=== PATIENT | female | born 1970 | race Caucasian/White ===

== ENCOUNTER → 2019-12-29 17:49 | Outpatient (CLI) | payer BC, SELFPAY ==
--- NOTE | ~2019-12-29 | MM_ITS ---
EXAMINATION: MM screening alina BI w stephenie HISTORY: Screening mammogram TECHNIQUE: Craniocaudal and mediolateral oblique 3-D tomosynthesis images were obtained and synthetic 2-D images were generated. CAD analysis was submitted and interpreted. COMPARISON: 10/05/2016 diagnostic left digital mammogram and complete left breast ultrasound 09/28/2016, 09/14/2015 bilateral digital screening mammogram examinations BREAST PARENCHYMAL COMPOSITION: The breasts are heterogeneously dense, which may obscure small masses . FINDINGS: Approximately 10.5 cm deep to the nipple in the central posterior right breast there is an approximately 4 mm mass with radiating spicules (craniocaudal Tomosynthesis image 41/86, MLO Tomosynt hesis image 48/112). Diagnostic right mammogram and right breast ultrasound examination are recommend ed. Otherwise there is no evidence of suspicious mass, calcification, or architectural distortion to sugg est malignancy in either breast. There has been no other suspicious interval change. IMPRESSION: 1. Spiculated density in posterior central right breast 2. Diagnostic right mammogram and right breast ultrasound examination are recommended. BI-RADS Category 0: Incomplete: Needs additional imaging evaluation. Reviewed, dictated and finalized at location A. ROPOMETRIST IMPRESSION: 1. Spiculated density in posterior central right breast 2. Diagnostic right mammogram and right breast ultrasound examination are recom mended. BI-RADS Category 0: Incomplete: Needs additional imaging evaluation.
== END ==
PROVIDERS: PCP Family Medicine Adolescent Medicine; Visit Provider Family Medicine Adolescent Medicine
DX: Z12.31 Encounter for screening mammogram for malignant neoplasm of breast (principal); R92.8 Other abnormal and inconclusive findings on diagnostic imaging of breast
CPT/HCPCS: 77063; 77067

== ENCOUNTER → 2020-01-15 07:29 | Outpatient (CLI) | payer BC, SELFPAY ==
--- NOTE | ~2020-01-15 | MMUS_ITS ---
MM diagnostic mammo unilat RT, US breast RT complete 01/15/2020 07:48 (accession [id number]), 01/15/2020 08:30 (accession [id number]) Indication: Follow-up right breast mass Procedure: Digital diagnostic images of the right breast/s] were performed using full field digital m ammography. 3-D tomosynthesis were also obtained and synthetic 2-D images were generated. CAD analysi s was performed and interpreted. Comparison: 12/29/2019 Findings: The breasts are heterogenously dense, which may obscure small masses. There is a small spic ulated mass upper central aspect of the right breast posteriorly. There are no suspicious calcificati ons. No focal skin thickening. Right breast ultrasound: Normal heterogeneous echotexture. No definitive mass is identified in the area of mammographic concer n. Impression: 1: Small spiculated mass upper central aspect of the right breast. Given that no abnormality is ident ified by ultrasound, follow-up evaluation with wire localization biopsy is recommended. BI-RADS category 5: Highly suspicious abnormality. Reviewed, dictated and finalized at location A. Impression: 1: Small spiculated mass upper central aspect of the right breast. Given that n o abnormality is identified by ultrasound, follow-up evaluation with wire local ization biopsy is recommended. BI-RADS category 5: Highly suspicious abnormality. Impression: 1: Small spiculated mass upper central aspect of the right breast. Given that n o abnormality is identified by ultrasound, follow-up evaluation with wire local ization biopsy is recommended. BI-RADS category 5: Highly suspicious abnormality.
== END ==
PROVIDERS: PCP Family Medicine Adolescent Medicine; Visit Provider Physician Assistant
DX: R92.8 Other abnormal and inconclusive findings on diagnostic imaging of breast (principal)
CPT/HCPCS: 76641; 77065

== ENCOUNTER 2020-03-15 06:45 | Outpatient (CLI) | payer BC, SELFPAY | END 2020-03-15 06:46 | disposition home or self-care (01) | PROVIDERS: PCP Family Medicine Adolescent Medicine; Visit Provider Surgery | DX: Z01.818 Encounter for other preprocedural examination (principal); Z11.59 Encounter for screening for other viral diseases | CPT/HCPCS: 87635; C9803; U0003 ==

== ENCOUNTER 2020-03-15 09:38 | Outpatient (CLI) | payer BC, SELFPAY ==
[2020-03-15 10:17] LABS: Blood Urea Nitrogen 7 mg/dL (7-17); Calcium 8.7 mg/dL (8.4-10.2); Carbon Dioxide 27 mmol/L (22-30); Chloride 103 mmol/L (98-107); Estimated Glomerular Filt Rate > 60; Glucose 157 mg/dL (65-105); Potassium 4.2 mmol/L (3.4-5.0); Sodium 136 mmol/L (137-145)
--- NOTE | 2020-03-15 10:17 | ECG_ITS ---
Measurements Intervals [place] Rate: 87 P: 20 AR: 134 QRS: 57 QRSD: 79 T: 97 QT: 345 QTc: 416 Interpretive Statements SINUS RHYTHM VENTRICULAR PREMATURE COMPLEXES LOW QRS VOLTAGE- DIFFUSE LEADS ANTEROSEPTAL INFARCT, AGE INDETERMINATE BORDERLINE ST-T WAVE ABNORMALITY- LATERAL LEADS ABNORMAL ECG Electronically Signed On 03-15-2020 10:39:30 CDT by Corby Navarrete D.O.
== END 2020-03-15 09:39 | disposition home or self-care (01) ==
LOC: ANHLAB 09:40
PROVIDERS: PCP Family Medicine Adolescent Medicine; Visit Provider Anesthesiology
DX: Z01.818 Encounter for other preprocedural examination (principal); E11.9 Type 2 diabetes mellitus without complications; R94.31 Abnormal electrocardiogram [ECG] [EKG]
CPT/HCPCS: 36415; 80048; 93005

== ENCOUNTER 2020-03-17 00:27 | Day surgery (SDC) | payer BC, SELFPAY ==
[2020-03-11 16:25] VITALS: BMI 50.2
[2020-03-17] VITALS (9 sets, daily range): BP systolic 131–154; BP diastolic 50–73; PULSE 82–94; RESP 14–20; TEMP 36.3–36.6; O2SAT 93–99
--- NOTE | ~2020-03-17 | MM_ITS ---
MM needle loc RT DATE: 03/17/2020 08:53 INDICATION: Preoperative wire localization of previously reported small spiculated mass (focal arch itectural distortion) in upper central right breast TECHNIQUE: The purpose of the procedure, technique and limitations were discussed with the patient. T he patient verbalized understanding and gave consent. Timeout procedure confirmed proper patient, procedure and breast. The right breast was placed in compression in craniocaudal position with biopsy grid over the upper b reast. In order to confidently identify the area, repeat craniocaudal compression view was performed and then the biopsy grid was re-applied. The skin was prepared with sterile Betadine solution. 1% lid ocaine local anesthetic was administered to the skin. A 10 cm or Mammalok needle was introduced from a superior approach into the breast. Craniocaudal expo sures confirmed appropriate direction of the needle. Using ML views, the needle was adjusted to appro priate depth. The wire was then engaged to the tip of the needle. Final ML and CC exposures confirmed the wire in the area of interest. The patient tolerated the proce dure very well, without complaint or apparent complication. COMPARISON: 01/15/2020 diagnostic right digital mammogram IMPRESSION: Preoperative wire localization of area of architectural distortion in the posterior aspec t of the upper central right breast Reviewed, dictated and finalized at Location A. Reviewed, dictated and finalized at location A. IMPRESSION: Preoperative wire localization of area of architectural distortion in the posterior aspect of the upper central right breast
--- NOTE | ~2020-03-17 | MM_ITS ---
MM surgical specimen RT DATE: 03/17/2020 10:52 INDICATION: Surgical breast specimen TECHNIQUE: Single noncompression digital mammographic exposure of surgical soft tissue specimen COMPARISON: 01/15/2020 diagnostic right digital mammogram 03/17/2020 right mammographic localization FINDINGS: The guidewire and area of mammographic interest are present within the specimen tissue. IMPRESSION: Successful surgical excision of localized area of architectural distortion Reviewed, dictated and finalized at Location [facility]. Reviewed, dictated and finalized at location A. IMPRESSION: Successful surgical excision of localized area of architectural dis tortion
--- NOTE | ~2020-03-17 | NM_ITS ---
NM sentinel node inject only DATE: 03/17/2020 09:23 INDICATION: Preoperative injection for sentinel node localization at surgery TECHNIQUE: The purpose of the procedure, technique and potential locations were discussed with the ray mcnulty. The patient verbalized understanding and gave consent. Timeout procedure confirmed proper patient, breast and procedure. Four equally divided doses totaling cumulative 1.088 mCi 99M technetium Lymphoseek was injected subcu taneously at 12:00, 3:00, 6:00 and 9:00 positions in the periareolar area of the right breast. IMPRESSION: Preoperative 1.088 mCi 99M technetium Lymphoseek periareolar subcutaneous injections for intraoperative sentinel node localization Reviewed, dictated and finalized at Location [facility]. Reviewed, dictated and finalized at location A. IMPRESSION: Preoperative 1.088 mCi 99M technetium Lymphoseek periareolar subcut aneous injections for intraoperative sentinel node localization
[2020-03-17 07:03] LABS: Glucose Point of Care 112 (65-105)
[2020-03-17] MEDS: LACTATED RINGERS 1,000 ML 30 ML IV CONT ×2 (07:10→11:26)
--- NOTE | 2020-03-17 07:10 | WPDANESEPPF ---
Anes - Initial Pre Proc Eval Procedure: Operation Date: 03/17/20 09:30 Proposed Procedures p Right Axillary [place] Lymph Node Biopsy - Cholo Patel MD s Right Breast Ultrasound And/Or Mammogram Guided Needle Localization Right Breast Lumpectomy - Cholo Patel MD Date/Time: 03/17/20 07:10 Surgeon: Cholo Patel MD Pre Op Diagnosis: Abnormal Right Breast Mammogram Patient Data Age: 49 Gender: F Height: 5 ft 9.5 in Weight: 156.5 kg Allergies Allergy/AdvReac Type Severity Reaction Status Date / Time No Known Allergies Allergy Verified 03/17/20 06:45 Home Medications Medication Instructions Recorded Confirmed Type aspirin 81 mg tablet,delayed 81 mg PO DAILY 01/29/20 03/11/20 History release buspirone 10 mg tablet 10 mg PO BID 01/29/20 03/17/20 History carvedilol 6.25 mg tablet 6.25 mg PO Q12H 01/29/20 03/17/20 History cetirizine 10 mg tablet 10 mg PO DAILY 01/29/20 03/11/20 History clopidogrel 75 mg tablet 75 mg PO DAILY 01/29/20 03/11/20 History dapagliflozin 10 mg tablet 10 mg PO DAILY 01/29/20 03/11/20 History duloxetine 60 mg capsule,delayed 60 mg PO DAILY 01/29/20 03/17/20 History release fluticasone propionate 50 1 spray NASAL DAILY 01/29/20 03/11/20 History mcg/actuation nasal spray,suspension losartan 50 mg tablet 50 mg PO DAILY 01/29/20 03/11/20 History montelukast 10 mg tablet 10 mg PO DAILY 01/29/20 03/11/20 History norgestimate-ethinyl estradiol 1 tablet PO DAILY 01/29/20 03/11/20 History rosuvastatin 40 mg tablet 40 mg PO DAILY 01/29/20 03/11/20 History topiramate 50 mg tablet 50 mg PO BID 01/29/20 03/17/20 History duloxetine 30 mg PO DAILY 03/11/20 03/17/20 History Laboratory Tests 03/17/20 07:01 POC Capillary Glucose 112 mg/dl H mg/dl (65-105) Patient hx anesthesia problems: none Family hx anesthesia problems: none PMFSH Past Medical History Medical History Anxiety Diabetes Heart attack Hyperlipemia Hypertension Surgical History Surgical History History of laparoscopic cholecystectomy Family History Family History Mother Hypertension Family history of elevated blood lipids Family history of malignant neoplasm of breast in first degree relative Other Diabetes mellitus Family history of cardiovascular disease Social History Social History Smoking status: Never smoker Alcohol intake: current 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 Questions were solicited and answers provided to the satisfaction of the patient/family/POA.
--- NOTE | 2020-03-17 07:36 | SUR.PREOP ---
To mammography per w/c.
--- NOTE | 2020-03-17 08:46 | PM.SD ---
Same Day Admit/Disch: HPI History of Present Illness Chief complaint: Abnormal Right Breast Mammogram Narrative: Nickie Cartagena is a 49 year old female who presented with a 4 mm spiculated right breast lesion on mammography in the upper right breast. The lesion is not seen on ultrasound and does not have any microcalcifications. It is highly suspicious for malignancy and the patient has a strong family history for breast cancer. She is taken to surgery now for right breast lumpectomy and right axillary sentinel lymph node biopsy. She will have wire localization prior to her surgery. [facility], [facility] Past Medical History Medical History Anxiety Diabetes Heart attack Hyperlipemia Hypertension Surgical History Surgical History History of laparoscopic cholecystectomy Family History Family History Mother Hypertension Family history of elevated blood lipids Family history of malignant neoplasm of breast in first degree relative Other Diabetes mellitus Family history of cardiovascular disease Social History Social History Smoking status: Never smoker Alcohol intake: current Additional occupation/education comments: [employer] Same Day Admit/Disch: Med Pre-admit Medications Home Medications Medication Instructions Recorded Confirmed Type aspirin 81 mg tablet,delayed 81 mg PO DAILY 01/29/20 03/17/20 History release buspirone 10 mg tablet 10 mg PO BID 01/29/20 03/17/20 History carvedilol 6.25 mg tablet 6.25 mg PO Q12H 01/29/20 03/17/20 History cetirizine 10 mg tablet 10 mg PO DAILY 01/29/20 03/17/20 History clopidogrel 75 mg tablet 75 mg PO DAILY 01/29/20 03/11/20 History dapagliflozin 10 mg tablet 10 mg PO DAILY 01/29/20 03/17/20 History duloxetine 60 mg capsule,delayed 60 mg PO DAILY 01/29/20 03/17/20 History release fluticasone propionate 50 1 spray NASAL DAILY 01/29/20 03/17/20 History mcg/actuation nasal spray,suspension losartan 50 mg tablet 50 mg PO DAILY 01/29/20 03/17/20 History montelukast 10 mg tablet 10 mg PO DAILY 01/29/20 03/17/20 History norgestimate-ethinyl estradiol 1 tablet PO DAILY 01/29/20 03/17/20 History rosuvastatin 40 mg tablet 40 mg PO DAILY 01/29/20 03/17/20 History topiramate 50 mg tablet 50 mg PO BID 01/29/20 03/17/20 History duloxetine 30 mg PO DAILY 03/11/20 03/17/20 History hydrocodone-acetaminophen 1 - 2 tablet PO Q6H PRN #15 tablet 03/17/20 Rx Exam Const: General: cooperative, comfortable, no acute distress, alert and awake Nutritional Appearance: obese morbidly obese Orientation/consciousness: patient oriented x3 Limitations: no limitations HENMT: Head: normocephalic and atraumatic Mouth: Yes Normal oral and palatal mucosa present Eyes: Conjunctivae: conjunctivae normal Pupils: Equal, round and reactive pupils present EOM: EOMs intact bilaterally Neck: Neck: normal visual inspection, no lymphadenopathy and nontender Chest: Breast/axilla inspection: normal inspection of the breasts and normal inspection of the axillae Breast/axilla palpation: normal palpation of the breasts and normal palpation of the axillae Resp: Effort & Inspection: normal respiratory effort Auscultation: clear to auscultation bilaterally Cardio: Rate: regular rate Rhythm: regular rhythm Heart sounds: no gallops, no murmurs and no rubs GI: Inspection: non-distended GI Palp: Yes Soft to palpation, No Tenderness to palpation present (GI), No Hepatomegaly present and No Splenomegaly present Skin: Lesions: no lesions Rashes: no rashes Neuro: General: no focal motor deficits and CN's II-XI intact bilaterally Cranial nerves: Yes Equal, round and reactive pupils present, Yes Bilaterally intact EOM present, Yes facial symmetry and Yes Midline tongue present
[2020-03-17] MEDS: ceFAZolin 3 GM/D5W 100 ML 100 ML IVPB (09:22)
[2020-03-17] MEDS: BUPIVACAINE/EPINEPHRINE 0.5% 30 ML VIAL INFILTRATE (10:00)
[2020-03-17] MEDS: ISOSULFAN BLUE 1% INJ 5 ML VIAL SUB-Q (10:01)
--- NOTE | 2020-03-17 11:31 | PM.PROC ---
Procedure Note - Detailed Date of procedure: 03/17/20 Pre-op diagnosis: Abnormal Right Breast Mammogram Abnormal mammogram right breast Post-op diagnosis: same Procedure performed: Wire localization, right breast lumpectomy, right axillary sentinel lymph node biopsy Description of procedure: Patient was taken to x-ray preoperatively. Wire localization of the upper right breast lesion was performed preoperatively. Also radioisotope injection under the right nipple was performed. She was taken back to the preoperative area. I reviewed her films. She was then taken to the operating room and induced into general anesthesia. The right breast as well as the right axilla was prepped and draped. The right arm was also prepped and draped so that it was sterile and mobile in the operating field. I injected Isosulfan Blue dye under the right nipple. Gentle breast massage was carried out for about 2 minutes. The navigator was used and areas of high isotope emission in the right axilla that would be compatible with location of sentinel nodes was marked on the skin. A hairline axillary incision was also marked on the skin. Incision was made and dissection was carried down through the subcutaneous tissue. Once we dissected into the axillary fat, the navigator was again used and an area of high isotope emission identified. Careful dissection with the cautery as well as blunt dissection was carried out. Clips were used for lymphatic stasis and vascular stasis. We eventually came to a dye stained lymph node in the axilla. It had a very high isotope emission and also had some lymphatics that were dye stained leading to this node. The node was carefully dissected and removed. Adjacent to this dye stained node, was a 2nd right axillary node which was excised with the sentinel node. After being removed, the dye stained node was dissected free from the additional right axillary node. The dye stained node was again checked with the navigator and did have very high isotope emission. The node was stained blue as well. It was sent to pathology labeled right axillary sentinel lymph node 1. The other node was not dye stained and did not have high isotope emission. It was sent simply as an additional right axillary node. Then using palpation, exploration, and the navigator, I searched for additional right axillary sentinel nodes. No suitable candidates were noted. Wound was then made hemostatic. It was closed in layers with 3 0 Monocryl subcutaneous and subcuticular interrupted suture. This area was quarantined with towels and we turned our attention to the right breast. The proposed incision, which was in the upper outer quadrant of the right breast was drawn on the skin. Local anesthetic was infiltrated into the skin and the deeper breast tissues. Incision was made and dissection was carried down through about 5 cm of breast tissue. I then exposed the wire and pulled the wire through the skin and out the wound. From there, dissection was carried down to and around the area where the lesion was judged to reside. Trying to stay well away from the lesion itself, I dissected around it attempting to take a margin of normal breast tissue in all dimensions. Eventually I dissected around the tumor and freed the end of the wire so that the specimen could be removed. The breast specimen was kept in its orientation and I used different color suture to corry the various margins for the pathologist. These were labeled appropriately. The specimen with the wire was placed on a grid and sent to mammography. Mammogram of the specimen did confirm the lesion to be present. I then exposed all 6 of the wound edges and excised additional margins for each. Each of these margin re-excision specimens was labeled appropriately and had a suture placed on its inner aspect. These were each sent to the pathologist. The wound was then made meticulously hemostatic with the cautery. The wound was closed in la
--- NOTE | 2020-03-17 12:43 | SUR.PHASEII ---
3030 pt called mom and we both gave her an update, she is heading to the hospital to pick her up
[2020-03-17 17:49] LABS: Glucose Point of Care 68 (65-105)
== END 2020-03-17 14:06 | disposition home or self-care (01) ==
PROVIDERS: PCP Family Medicine Adolescent Medicine; Visit Provider Surgery
PROC: (CPT 19301; principal; 2020-03-17 09:30)
PROC: (CPT 19301; 2020-03-17 09:30)
DX: C50.911 Malignant neoplasm of unspecified site of right female breast (principal); E11.9 Type 2 diabetes mellitus without complications; I10 Essential (primary) hypertension; I25.2 Old myocardial infarction; F41.9 Anxiety disorder, unspecified; Z79.02 Long term (current) use of antithrombotics/antiplatelets; Z79.4 Long term (current) use of insulin; E66.01 Morbid (severe) obesity due to excess calories; Z68.42 Body mass index [BMI] 45.0-49.9, adult
CPT/HCPCS: 19301; 38525; 19281; 38792; 76098; 88305; 88307; 88342; A9270; A9520; C1713; C1769; J0690; J2250; J2405; J2704; J3010; J7030; J7120

== ENCOUNTER 2020-05-18 13:17 | Inpatient (IN) | payer BC, SELFPAY ==
[2020-05-18 13:43] LABS: Glucose Point of Care 500 (65-105)
[2020-05-18 13:56] VITALS: BP 100/86; PULSE 92; RESP 20; TEMP 36.8; O2SAT 98
[2020-05-18 14:04] LABS: Basophils Absolute Auto 0.1 K/mm3 (0.0-0.1); Basophils Percent Auto 0.4 % (0.2-1.2); Hematocrit 46.2 % (37.0-47.0); Hemoglobin 14.7 g/dL (12.0-15.0); Immature Granulocyte Absolute 0.07 K/mm3 (0.00-0.031); Immature Granulocyte Percent A 0.5 % (0-0.5); Lymphocytes Absolute Auto 0.85 K/mm3 (0.9-3.2); Lymphocytes Percent Auto 6.2 % (18.3-44.2); Mean Corpuscular HGB Conc 31.8 g/dl (32-36); Mean Corpuscular Hemoglobin 30.2 pg (26-34); Mean Corpuscular Volume 95.1 fl (80-100); Mean Platelet Volume 10.5 fl (7.4-10.4); Monocytes Absolute Auto 0.8 K/mm3 (0.1-0.6); Monocytes Percent Auto 5.5 % (2.6-8.5); Neutrophils Percent Auto 87.4 % (45.5-73.1); Platelet Count Result 391 k/mm3 (150-375); Red Blood Count 4.86 M/mm3 (4.2-5.4); Red Cell Distribution Width 12.4 % (11.5-14.5); White Blood Count 13.7 K/mm3 (4.5-10.0)
[2020-05-18 14:13] LABS: Add Urine Microscopic? YES; Appearance Urine Cloudy (Clear); Bacteria Urine Trace /hpf; Bilirubin Urine Negative (Negative); Blood Urine 3+ (Negative); Glucose Urine UA 3+ mg/dL (Negative); Ketones Urine 2+ mg/dL (Negative); Leukocyte Esterase Ur Negative LEU/UL (Negative); Mucus Urine Rare /lpf; Nitrate Urine Negative (Negative); Protein Urine 2+ mg/dL (Negative); RBC Urine >75 /hpf (0-2); Specific Grav Ur 1.015 (1.001-1.035); Squamous Epithelial Cell Urine Many /hpf (Few); Urobilinogen Urine Negative mg/dL (<2.0); WBC Urine 21-30 /hpf
[2020-05-18 14:16] LABS: Color Urine Dark Yellow (Yellow)
[2020-05-18 14:18] LABS: Alanine Aminotransferase 47 U/L (4-35); Albumin Level 4.6 g/dL (3.5-5.1); Alkaline Phosphatase 191 U/L (38-126); Aspartate Amino Transferase 54 U/L (14-36); Bilirubin,Total 0.4 mg/dL (0.2-1.3); Blood Urea Nitrogen 21 mg/dL (7-17); Calcium 9.3 mg/dL (8.4-10.2); Carbon Dioxide 7 mmol/L (22-30); Chloride 97 mmol/L (98-107); Estimated CRCL calculation 71 ml/min; Estimated Glomerular Filt Rate 40; Glucose 479 mg/dL (65-105); Magnesium 2.3 mg/dL (1.6-2.3); Phosphorus 9.3 mg/dL (2.5-4.5); Potassium 5.1 mmol/L (3.4-5.0); Sodium 133 mmol/L (137-145)
[2020-05-18 15:00] VITALS: PULSE 101; RESP 20; O2SAT 100
[2020-05-18 15:01] LABS: Alveolar/Arterial O2 Gradient 21.9 mmHg; Base Excess ABG -20.9 mEq/l (+/-2.0); Fractional Inspired Oxygen 21 %; Oxygen Content ABG 20.3 %vol (16.0-22.0); Oxygen Saturation ABG 96.4 % (95.0-100.0); Oxyhemoglobin 96.5 % THb (90.0-100.0); PO2 ABG 106.4 mmHg (80.0-100.0); PO2 FiO2 Ratio Arterial Blood 5.07 %; Total Hemoglobin 14.9 g/dL (12.0-18.0)
--- NOTE | 2020-05-18 15:01 | ECG_ITS ---
Measurements Intervals [place] Rate: 101 P: 19 [place]: 140 QRS: 6 QRSD: 84 T: -16 QT: 348 QTc: 451 Interpretive Statements SINUS TACHYCARDIA POSSIBLE LEFT ATRIAL ENLARGEMENT ANTEROSEPTAL INFARCT, AGE INDETERMINATE BORDERLINE ST-T WAVE ABNORMALITY- INFERIOR LEADS BASELINE ARTIFACT- V3-V6 ABNORMAL ECG Electronically Signed On 05-18-2020 15:37:29 CDT by Corby Navarrete D.O.
[2020-05-18 15:04] LABS: Device ROOM AIR; Modified Allen's Test Pass; PCO2 ABG 17.9 mmHg (35.0-45.0); Site Drawn RIGHT RADIAL
[2020-05-18 15:08] LABS: Beta-Hydroxybutyrate/Acetoacetate 9.74 mmol/L (0.02-0.27)
[2020-05-18] MEDS: SODIUM CHLORIDE 0.9% IV 1,000 ML 999 ML IV CONT ×3 (15:13→17:33)
[2020-05-18] MEDS: INSULIN HUMAN REGULAR (*BKC) 100 UNITS/ML 16 UNITS IV PUSH (15:14)
--- NOTE | 2020-05-18 15:33 | ED.RECABL ---
HPI - Recheck/Abnormal Lab/Rx General Chief Complaint: Recheck/Abnormal Lab/Rx <Quincy Johnson PA-C - Last Filed: 05/18/20 19:35> Stated Complaint: think im having ketoacidosis <Quincy Johnson PA-C - Last Filed: 05/18/20 19:35> Time Seen by Provider: 05/18/20 13:39 <Quincy Johnson PA-C - Last Filed: 05/18/20 19:35> Source: patient <Quincy Johnson PA-C - Last Filed: 05/18/20 19:35> Mode of arrival: ambulatory <Quincy Johnson PA-C - Last Filed: 05/18/20 19:35> Limitations: no limitations <Quincy Johnson PA-C - Last Filed: 05/18/20 19:35> History of Present Illness HPI narrative: Patient who is a type I diabetic presents with chief complaint of increased thirst increased urination, nausea, vomiting and hyperglycemia that began last night. Patient states that she has been having some issues with her insulin pump and try to give herself a corrective dose of 23 units of insulin at 10:30 AM but did not feel improved so she thought she may be having issues with ketoacidosis. Patient states she has not been in DKA in 4 years. Patient has also been currently treated for breast cancer. She denies any fever, urinary frequency, cough, chest pain, shortness of breath, rash or any other known sources of infection. <Quinyc Johnson PA-C - Last Filed: 05/18/20 19:35> Related Data Home Medications: Home Medications Medication Instructions Recorded Confirmed aspirin 81 mg tablet,delayed 81 mg PO DAILY 01/29/20 05/18/20 release buspirone 10 mg tablet 10 mg PO BID 01/29/20 05/18/20 carvedilol 6.25 mg tablet 6.25 mg PO Q12H 01/29/20 05/18/20 cetirizine 10 mg tablet 10 mg PO DAILY 01/29/20 05/18/20 clopidogrel 75 mg tablet 75 mg PO DAILY 01/29/20 05/18/20 duloxetine 60 mg capsule,delayed 60 mg PO DAILY 01/29/20 05/18/20 release fluticasone propionate 50 1 spray NASAL DAILY 01/29/20 05/18/20 mcg/actuation nasal spray,suspension losartan 50 mg tablet 50 mg PO DAILY 01/29/20 05/18/20 montelukast 10 mg tablet 10 mg PO DAILY 01/29/20 05/18/20 norgestimate-ethinyl estradiol 1 tablet PO DAILY 01/29/20 05/18/20 rosuvastatin 40 mg tablet 40 mg PO DAILY 01/29/20 05/18/20 topiramate 50 mg tablet 50 mg PO BID 01/29/20 05/18/20 duloxetine 30 mg PO DAILY 03/11/20 05/18/20 <Quincy Johnson PA-C - Last Filed: 05/18/20 19:35> Allergies/Adverse Reactions: Allergies Allergy/AdvReac Type Severity Reaction Status Date / Time No Known Allergies Allergy Verified 05/18/20 15:20 <Quincy Johnson PA-C - Last Filed: 05/18/20 19:35> Review of Systems Review of Systems: Narrative: CONSTITUTIONAL: Denies fever, chills, or sweats. EYES: Denies visual changes, redness, or discharge. ENT: Reports dry mouth and frequent thirst denies rhinorrhea, congestion, sore throat, or otalgia. CARDIOVASCULAR: Denies chest pain, palpitations, or edema. RESPIRATORY: Denies cough or dyspnea. GASTROINTESTINAL: Reports nausea and vomiting she denies abdominal pain or diarrhea. GENITOURINARY: Reports frequent urination denies dysuria or hematuria. SKIN: Denies rash or itching. MUSCULOSKELETAL: Denies back pain, joint pain, or myalgia. NEUROLOGIC: Denies headache, numbness, dizziness, or weakness. PSYCHIATRIC: Denies anxiety or depression. <Quincy Johnson PA-C - Last Filed: 05/18/20 19:35> [facility] Past Medical History Medical History: Medical History (Updated 05/18/20 @ 20:00 by Merle Mclean NP) Allergies Anxiety Breast cancer radiation treatment stage IA with lumpectomy right breast right axillary sentinel lymph node Biopsy She is needing 8 more radiation treatments. Diabetes Heart attack Hyperlipemia Hypertension Migraines <Quincy Johnson PA-C - Last Filed: 05/18/20 19:35> Surgical History Surgical History: Surgical History (Updated 05/18/20 @ 20:00 by Merle Mclean NP) H/O lumpectomy Right breast axillary sentinel node biopsy. History of laparoscopic cholecystectomy <Di
[2020-05-18 15:52] LABS: Glucose Point of Care 364 (65-105)
[2020-05-18] MEDS: INSULIN HUMAN REGULAR (*BKC) 100 UNITS in SODIUM CHLORIDE 0.9% IV 99 ML 6.1 UNITS IV CONT (16:10)
[2020-05-18 17:24] LABS: Glucose Point of Care 161 (65-105)
[2020-05-18 18:00] VITALS: BP 157/67; PULSE 103; RESP 26; O2SAT 100
[2020-05-18 18:11] VITALS: BMI 47.7
--- NOTE | 2020-05-18 18:11 | ADMGEN ---
This patient, Nickie Cartagena, was admitted to Intensive Care Unit-5. Patient/family oriented to hospital policies and general routines including ID bracelet, bed and alarms, visiting hours, pain management, procedures, bathroom and other care routines, personal items, smoking policy, room service/diet, and visiting hours. Valuables list has been completed. Information on how to activate the Rapid Response Team has been discussed. Patient/Family are encouraged to report perceived risks to care and to ask questions if they do not understand what they are told or what they should do.
[2020-05-18 18:28] LABS: Glucose Point of Care 151 (65-105)
[2020-05-18 19:15] LABS: Glucose Point of Care 133 (65-105)
[2020-05-18] MEDS: hydrALAZINE HCL 20 MG/ML VIAL 10 MG IV PUSH (19:40)
--- NOTE | 2020-05-18 19:52 | PM.IMHP ---
H&P: HPI History of Present Illness Chief complaint: Diabetic ketoacidosis Narrative: Nickie Cartagena is a 50 year old female Who has diabetes type 1 who was diagnosed when she was 7 years old. The patient has not had DKA in 4 years. The patient had only had DKA 1 time. The patient came in today because she had increased urination, nausea, vomiting hyperglycemia that started last night. The patient stated that she tried to keep herself adjustment insulin and just was not working. The patient tried to give herself a dose of 22 units of inside 10 30 but she did feel any improvement. She had nausea and vomiting but no diarrhea. She had no fever chills no cough. No shortness of breath. No signs and symptoms of any infection. The patient has been under a lot of stress lately she recently was diagnosed with breast cancer stage IA and has been receiving radiation for this. The patient tried to change her pump this morning to see if that would work but when she got here she had to take her pump off. The patient was started on the DKA protocol. Anion gap was listed as 29. Her blood sugar was noted to be 500. Liver enzymes are elevated. Patient's beta hydroxybutyrate was 9.74. Her white count 13.7. Patient had metabolic acidosis. With pH of 7.1 CO2 was 17.9. PO2 is 106. Date of service 05/18/2020 Review of Systems Review of Systems: All systems reviewed & are unremarkable except as noted in HPI and below Constitutional: Constitutional: Reports as per HPI and Reports no additional constitutional complaints Eyes: Eyes: Reports as per HPI and Reports no additional eye complaints ENT: Reports system reviewed and no additional complaints, except as documented and Reports Normal hearing present Cardiovascular: Cardiovascular: Reports no additional cardiovascular complaints Respiratory: Respiratory: Reports no additional respiratory complaints and Reports no additional respiratory complaints Gastrointestinal: Gastrointestinal: Reports as per HPI and Reports no additional gastrointestinal complaints Musculoskeletal: Musculoskeletal: Reports no additional musculoskeletal complaints Integumentary/Breasts: Skin/Breast: Reports system reviewed and no additional complaints, except as docu and Reports as per HPI Neurologic: Reports system reviewed and no additional complaints, except as documented, Reports as per HPI and Reports Normal hearing present Psychiatric: Psychiatric: Reports no additional psychiatric complaints and Reports as per HPI Endocrine: Endocrine: Reports no additional endocrine complaints Hematologic/Lymphatic: Hematologic/Lymphatic: Reports no additional hematologic/lymphatic complaints Allergic/Immunologic: Allergic/Immunologic: Reports no additional allergic/immunologic complaints [facility] Past Medical History Medical History (Updated 05/18/20 @ 20:00 by Merle Mclean NP) Allergies Anxiety Breast cancer radiation treatment stage IA with lumpectomy right breast right axillary sentinel lymph node Biopsy She is needing 8 more radiation treatments. Diabetes Heart attack Hyperlipemia Hypertension Migraines Surgical History Surgical History (Updated 05/18/20 @ 20:00 by Merle Mclean NP) H/O lumpectomy Right breast axillary sentinel node biopsy. History of laparoscopic cholecystectomy Family History Family History Mother Hypertension Family history of elevated blood lipids Family history of malignant neoplasm of breast in first degree relative Other Diabetes mellitus Family history of cardiovascular disease Social History Social History (Updated 05/18/20 @ 20:04 by Merle Mclean NP) Social History: the patient does not have a power attorney lawyer and would like to be a full code. She was single. She has no children. 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 She is a smoker or use marijuana or illicit drug
[2020-05-18 20:00] VITALS: BP 147/45; PULSE 106; PULSE 109; RESP 21; TEMP 37.2; O2SAT 100
[2020-05-18 20:19] LABS: Glucose Point of Care 112 (65-105)
[2020-05-18 20:38] LABS: Blood Urea Nitrogen 19 mg/dL (7-17); Calcium 8.6 mg/dL (8.4-10.2); Carbon Dioxide 15 mmol/L (22-30); Chloride 106 mmol/L (98-107); Estimated CRCL calculation 85 ml/min; Estimated Glomerular Filt Rate 53; Glucose 112 mg/dL (65-105); Potassium 4.5 mmol/L (3.4-5.0); Sodium 139 mmol/L (137-145)
[2020-05-18 21:08] LABS: Hemoglobin A1C 7.9 % (<5.7)
[2020-05-18] MEDS: KCL 20 MEQ/D5/0.45% SOD CHL 1,000 ML 150 ML IV CONT (21:13)
[2020-05-18 21:22] VITALS: PULSE 110
[2020-05-18] MEDS: busPIRone HCL 10 MG TABLET PO (21:22)
[2020-05-18] MEDS: carvediloL 6.25 MG TABLET PO (21:22)
[2020-05-18] MEDS: TOPIRAMATE 25 MG TABLET 50 MG PO (21:23)
[2020-05-18 21:29] LABS: Glucose Point of Care 124 (65-105)
[2020-05-18 22:00] VITALS: BP 128/58; PULSE 111; RESP 19; O2SAT 100
[2020-05-18 22:16] LABS: Glucose Point of Care 138 (65-105)
[2020-05-18 23:13] LABS: Glucose Point of Care 190 (65-105)
[2020-05-19] VITALS (13 sets, daily range): BP systolic 96–150; BP diastolic 44–73; PULSE 67–105; RESP 13–24; TEMP 36.1–37.3; O2SAT 96–99
[2020-05-19 00:22] LABS: Glucose Point of Care 199 (65-105)
[2020-05-19 00:22] LABS: Glucose Point of Care 490 (65-105)
[2020-05-19 01:17] LABS: Glucose Point of Care 189 (65-105)
[2020-05-19 01:41] LABS: Blood Urea Nitrogen 17 mg/dL (7-17); Calcium 8.3 mg/dL (8.4-10.2); Carbon Dioxide 17 mmol/L (22-30); Chloride 108 mmol/L (98-107); Estimated CRCL calculation 103 ml/min; Estimated Glomerular Filt Rate > 60; Glucose 195 mg/dL (65-105); Potassium 4.4 mmol/L (3.4-5.0); Sodium 135 mmol/L (137-145)
[2020-05-19 03:28] LABS: Glucose Point of Care 153 (65-105)
[2020-05-19 03:28] LABS: Glucose Point of Care 157 (65-105)
[2020-05-19] MEDS: KCL 20 MEQ/D5/0.45% SOD CHL 1,000 ML 150 ML IV CONT ×2 (04:14→11:30)
[2020-05-19 04:17] LABS: Glucose Point of Care 194 (65-105)
[2020-05-19 05:19] LABS: Glucose Point of Care 170 (65-105)
[2020-05-19 05:50] LABS: Basophils Absolute Auto 0.1 K/mm3 (0.0-0.1); Basophils Percent Auto 0.6 % (0.2-1.2); Eosinophils Absolute Auto 0.1 K/mm3 (0-0.3); Eosinophils Percent Auto 0.6 % (0-4.4); Hematocrit 36.2 % (37.0-47.0); Immature Granulocyte Absolute 0.04 K/mm3 (0.00-0.031); Immature Granulocyte Percent A 0.4 % (0-0.5); Lymphocytes Absolute Auto 1.29 K/mm3 (0.9-3.2); Lymphocytes Percent Auto 14.4 % (18.3-44.2); Mean Corpuscular HGB Conc 33.1 g/dl (32-36); Mean Corpuscular Volume 90.5 fl (80-100); Mean Platelet Volume 9.9 fl (7.4-10.4); Neutrophils Absolute Auto 6.5 K/mm3 (1.3-6.7); Platelet Count Result 283 k/mm3 (150-375); Red Cell Distribution Width 12.6 % (11.5-14.5)
[2020-05-19 06:01] LABS: Blood Urea Nitrogen 15 mg/dL (7-17); Calcium 8.4 mg/dL (8.4-10.2); Carbon Dioxide 16 mmol/L (22-30); Chloride 108 mmol/L (98-107); Estimated CRCL calculation 115 ml/min; Estimated Glomerular Filt Rate > 60; Glucose 164 mg/dL (65-105); Potassium 3.9 mmol/L (3.4-5.0); Sodium 135 mmol/L (137-145)
[2020-05-19 06:28] LABS: Glucose Point of Care 126 (65-105)
[2020-05-19 07:08] LABS: Glucose Point of Care 121 (65-105)
[2020-05-19 08:04] LABS: Free T4 Free Thyroxine Reflex 1.15 ng/dL (0.78-2.19)
[2020-05-19 08:10] LABS: Glucose Point of Care 150 (65-105)
[2020-05-19 08:38] LABS: Blood Urea Nitrogen 13 mg/dL (7-17); Calcium 8.6 mg/dL (8.4-10.2); Carbon Dioxide 18 mmol/L (22-30); Chloride 107 mmol/L (98-107); Estimated CRCL calculation 131 ml/min; Estimated Glomerular Filt Rate > 60; Glucose 148 mg/dL (65-105); Potassium 3.8 mmol/L (3.4-5.0); Sodium 135 mmol/L (137-145)
[2020-05-19] MEDS: busPIRone HCL 10 MG TABLET PO ×2 (09:01→20:47)
[2020-05-19] MEDS: CLOPIDOGREL BISULFATE 75 MG TABLET PO (09:01)
[2020-05-19] MEDS: carvediloL 6.25 MG TABLET PO ×2 (09:01→20:46)
[2020-05-19] MEDS: ASPIRIN 81 MG ENTERIC TABLET PO (09:01)
[2020-05-19] MEDS: DULoxetine HCL 30 MG CAPSULE.DR PO (09:02)
[2020-05-19] MEDS: LORATADINE 10 MG TABLET PO (09:02)
[2020-05-19] MEDS: ROSUVASTATIN 10 MG TABLET 40 MG PO (09:02)
[2020-05-19] MEDS: MONTELUKAST SODIUM 10 MG TABLET PO (09:02)
[2020-05-19] MEDS: DULoxetine HCL 60 MG CAPSULE.DR PO (09:02)
[2020-05-19] MEDS: TOPIRAMATE 25 MG TABLET 50 MG PO ×2 (09:02→20:45)
[2020-05-19] MEDS: LOSARTAN POTASSIUM 50 MG TABLET PO (09:03)
[2020-05-19 09:08] LABS: Glucose Point of Care 146 (65-105)
[2020-05-19 09:42] LABS: Total Triiodothyronine (T3) 0.88 NG/ML (0.97-1.69)
[2020-05-19 10:04] LABS: Glucose Point of Care 166 (65-105)
[2020-05-19 11:01] LABS: Glucose Point of Care 140 (65-105)
[2020-05-19 12:09] LABS: Glucose Point of Care 146 (65-105)
[2020-05-19 12:48] LABS: Blood Urea Nitrogen 11 mg/dL (7-17); Calcium 8.5 mg/dL (8.4-10.2); Carbon Dioxide 20 mmol/L (22-30); Chloride 106 mmol/L (98-107); Estimated CRCL calculation 131 ml/min; Estimated Glomerular Filt Rate > 60; Glucose 161 mg/dL (65-105); Sodium 133 mmol/L (137-145)
--- NOTE | 2020-05-19 12:59 | WPDCNINT ---
Assessment and Plan Assessment and plan (1) DKA (diabetic ketoacidoses): Qualifiers: Diabetes mellitus complication detail: without coma Diabetes mellitus type: type 1 Qualified Code(s): E10.10 - Type 1 diabetes mellitus with ketoacidosis without coma Code(s): E11.10 - Type 2 diabetes mellitus with ketoacidosis without coma Status: Acute Assessment and Plan: patient presented with increased urination, nausea, vomiting, hyperglycemia. Patient stated that she changed her insulin pump site recently and thinks that maybe kg 10 not functioning well - in the ED patient was diagnosed with DKA, given 3 L IV fluid bolus,started on insulin drip - will transition to long-acting insulin sliding scale insulin once her anion gap and metabolic acidosis resolves. - Hemoglobin A1c 7.9 (2) Hypertension: Qualifiers: Hypertension type: essential hypertension Qualified Code(s): I10 - Essential (primary) hypertension Code(s): I10 - Essential (primary) hypertension Status: Chronic Assessment and Plan: blood pressures have been stable, continue home meds (3) Hyperlipemia: Qualifiers: Hyperlipidemia type: unspecified Qualified Code(s): E78.5 - Hyperlipidemia, unspecified Code(s): E78.5 - Hyperlipidemia, unspecified Status: Chronic Assessment and Plan: continue statin (4) Breast cancer: Code(s): C50.919 - Malignant neoplasm of unspecified site of unspecified female breast Status: Chronic Assessment and Plan: status post lumpectomy in February 2020, currently on radiation therapy 06/27 cycle Additional Plan discussed with patient and updated with her condition and plan of care. I answered all questions code status: Full code critical care time spent: 38 minutes Due to a high probability of clinically significant, life threatening deterioration, the patient required my highest level of preparedness to intervene emergently and I personally spent this critical care time directly and personally managing the patient. This critical care time included obtaining a history; examining the patient; pulse oximetry; ordering and review of studies; arranging urgent treatment with development of a management plan; evaluation of patient's response to treatment; frequent reassessment; and discussions with other providers. It was exclusive of separately billable procedures and treating other patients and teaching time. Please see Assessment and Plan section and the rest of the note for further information on patient assessment and treatment Modeling And Simulation Analyst Consult Note Consult date: 05/19/20 Time Seen: 07:11 HPI: Nickie Cartagena is a 50 year old female past medical history of diabetes type 1 on insulin pump,recently diagnosed stage IA breast cancer with lumpectomy of the right breast axillary sentinel lymph nodes, Patient on radiation therapy 06/27. coronary artery disease, hyperlipidemia, hypertension presented the ED on 05/18/2020 with complains of nausea, vomiting with increased urination, noted to have hyperglycemia. She thinks her insulin pump was not functioning well or was kinked. She did give herself a bolus of insulin without any improvement in her hyperglycemia. In the ED patient was found to have blood sugars of 500, anion gap of 29 with a positive beta hydroxybutyrate, pH of 7.14 and bicarb of 17. Patient was given 3 L IV fluid bolus and started on insulin infusion and transferred to the ICU for further management patient seen and examined this morning in the ICU, is awake, alert, oriented x3. Pleasant personality. Denies any shortness of breath, chest pain, abdominal pain, nausea vomiting at this time is much better. Patient remains on insulin infusion due to metabolic acidosis despite her gap being closed. Review of Systems Review of Systems: All systems reviewed & are unremarkable except as noted in HPI and below PMFSH Past Medical Hi
[2020-05-19 13:18] LABS: Glucose Point of Care 140 (65-105)
[2020-05-19] MEDS: INSULIN DETEMIR 100 UNITS/ML 25 UNITS SUB-Q (13:39)
[2020-05-19 17:22] LABS: Glucose Point of Care 415 (65-105)
--- NOTE | 2020-05-19 17:37 | PM.IMPN ---
Progress Note: A&P Assessment and Plan (1) DKA (diabetic ketoacidoses): Qualifiers: Diabetes mellitus complication detail: without coma Diabetes mellitus type: type 1 Qualified Code(s): E10.10 - Type 1 diabetes mellitus with ketoacidosis without coma Code(s): E11.10 - Type 2 diabetes mellitus with ketoacidosis without coma Status: Acute Assessment and Plan: Patient seen in the ER and found to be in DKA. She was treated with IV fluids and insulin drip and admitted to the ICU per protocol. Patient's anion gap has closed. She was able to come off of the insulin drip. Glucose has increased this evening to the 400's. She has already changed out the insulin pump site and she has the pump here. Will resume pump per protocol and monitor to see if this is functioning well. She carb counts as well (2) Diabetes: Code(s): E11.9 - Type 2 diabetes mellitus without complications Status: Acute Assessment and Plan: A1c 7.9. Patient has had diabetes since age 7. She has done quite well with this. She has been on insulin pump for the past 20 years. Will resume insulin pump as mentioned above and monitor overnight. If she remains stable, plan for discharge tomorrow. (3) Hypertension: Qualifiers: Hypertension type: essential hypertension Qualified Code(s): I10 - Essential (primary) hypertension Code(s): I10 - Essential (primary) hypertension Status: Chronic Assessment and Plan: Blood pressure reviewed on 05/19/20. Blood pressure is somewhat labile. Will continue with her Coreg and losartan. Continue to follow. (4) Anxiety: Code(s): F41.9 - Anxiety disorder, unspecified Status: Chronic Assessment and Plan: Mood stable. Continue Cymbalta. (5) Migraines: Code(s): G43.909 - Migraine, unspecified, not intractable, without status migrainosus Status: Chronic Assessment and Plan: Stable. Continue with Topamax. (6) Hyperlipemia: Qualifiers: Hyperlipidemia type: unspecified Qualified Code(s): E78.5 - Hyperlipidemia, unspecified Code(s): E78.5 - Hyperlipidemia, unspecified Status: Chronic Assessment and Plan: LFTs mildly elevated. Continue with Crestor. Repeat LFTs in morning. (7) Breast cancer: Code(s): C50.919 - Malignant neoplasm of unspecified site of unspecified female breast Status: Chronic Assessment and Plan: Patient recently diagnosed with breast cancer and currently undergoing radiation treatments. Subjective Date/time seen: 05/19/20 17:37 Interval history: 50yo female with DM type I her for DKA. Patient able to come off the drip earlier today. She feels much better. no n/v. Eating normally. She rarely has DKA and feels her pump may have malfunctioned. She denies CP or SOB. Denies peripheral neuropathy symptoms. Exam Narrative: Exam Narrative: AF 150/73 99 13 Gen - NARD Chest - CTA bilaterally, nml RR CV - RRR S1/S2; Tele showing no significnat dyrhythmias but does get tachycardic with exertion. Abd - soft, obese, NT Ext - no pedal edema Psych - nml mood and affect Skin - warm and dry Objective Data Vital Signs Vital Signs: Vital Signs - 24 hr 05/18/20 18:00 05/18/20 20:00 05/18/20 21:22 Temperature 98.9 F Pulse Rate 103 H 106 H 110 H Respiratory Rate 26 H 21 H Blood Pressure 157/67 H 147/45 H Pulse Oximetry 100 100 05/18/20 22:00 05/19/20 00:00 05/19/20 02:00 Temperature 99.2 F Pulse Rate 111 H 105 H 97 Respiratory Rate 19 20 20 Blood Pressure 128/58 L 127/62 97/54 L Pulse Oximetry 100 97 96 05/19/20 04:00 05/19/20 06:00 05/19/20 08:00 Temperature 98.6 F 98.4 F Pulse Rate 96 96 93 Respiratory Rate 21 H 22 H 18 Blood Pressure 96/51 L 132/64 135/62 Pulse Oximetry 96 99 96 05/19/20 09:01 05/19/20 10:00 05/19/20 12:00 Temperature 98.6 F 98.6 F Pulse Rate 100 95 92
[2020-05-19 20:34] LABS: Glucose Point of Care 383 (65-105)
--- NOTE | 2020-05-19 21:59 | PC.NURSE ---
This patient, Nickie Cartagena, was transferred to [facility] on 05/19/20 at 2050. Personal belongings sent with patient. Belongings list checked and signed with receiving Carrie. Report given to Carrie. Appropriate documentation sent with patient.
[2020-05-19 22:26] LABS: Glucose Point of Care 255 (65-105)
[2020-05-20] VITALS: BP 149/59; PULSE 94; RESP 20; TEMP 36.1; O2SAT 97
[2020-05-20] MEDS: GLUCOSE ORAL GEL 15 GM OF GLUCSE IN 37.5 GM TUBE PO (03:30)
--- NOTE | 2020-05-20 03:43 | PC.NURSE ---
0330 PATIENT CALLED NURSE TO ROOM WITH C/O FEELING LIKE BLOOD SUGAR LOW. ACCUCHECK RESULTED 34. HYPOGLYCEMIA PROTOCOL INITIATED. PATIENT ON INSULIN PUMP AND SHE TURNED OFF BASAL RATE AT REQUEST OF NURSE.
--- NOTE | 2020-05-20 03:45 | PC.NURSE ---
0345, PATIENT IS FEELING BETTER, REQUEST TO WAIT AN ADDITIONAL 10 FOR GLUCOSE RETEST.
[2020-05-20 03:57] LABS: Glucose Point of Care 74 (65-105)
[2020-05-20 03:57] LABS: Glucose Point of Care 34 (65-105)
[2020-05-20 05:33] LABS: Basophils Percent Auto 0.8 % (0.2-1.2); Eosinophils Absolute Auto 0.1 K/mm3 (0-0.3); Eosinophils Percent Auto 2.2 % (0-4.4); Hemoglobin 12.8 g/dL (12.0-15.0); Immature Granulocyte Absolute 0.02 K/mm3 (0.00-0.031); Immature Granulocyte Percent A 0.4 % (0-0.5); Lymphocytes Absolute Auto 0.93 K/mm3 (0.9-3.2); Lymphocytes Percent Auto 18.9 % (18.3-44.2); Mean Corpuscular HGB Conc 33.7 g/dl (32-36); Mean Corpuscular Hemoglobin 30.5 pg (26-34); Mean Corpuscular Volume 90.5 fl (80-100); Mean Platelet Volume 10.1 fl (7.4-10.4); Monocytes Absolute Auto 0.6 K/mm3 (0.1-0.6); Monocytes Percent Auto 11.4 % (2.6-8.5); Neutrophils Absolute Auto 3.3 K/mm3 (1.3-6.7); Neutrophils Percent Auto 66.3 % (45.5-73.1); Platelet Count Result 246 k/mm3 (150-375); White Blood Count 4.9 K/mm3 (4.5-10.0)
[2020-05-20 05:55] LABS: Alanine Aminotransferase 35 U/L (4-35); Albumin Level 3.5 g/dL (3.5-5.1); Alkaline Phosphatase 128 U/L (38-126); Anion Gap 10.5 mmol/L (7-16); Aspartate Amino Transferase 49 U/L (14-36); Bilirubin,Total 0.3 mg/dL (0.2-1.3); Blood Urea Nitrogen 9 mg/dL (7-17); Calcium 8.7 mg/dL (8.4-10.2); Carbon Dioxide 24 mmol/L (22-30); Chloride 105 mmol/L (98-107); Estimated CRCL calculation 134 ml/min; Estimated Glomerular Filt Rate > 60; Glucose 93 mg/dL (65-105); Phosphorus 3.4 mg/dL (2.5-4.5); Potassium 3.5 mmol/L (3.4-5.0); Sodium 136 mmol/L (137-145)
[2020-05-20 05:58] VITALS: BP 132/63; PULSE 85; RESP 20; TEMP 36; O2SAT 97
[2020-05-20 07:43] LABS: Glucose Point of Care 149 (65-105)
[2020-05-20] MEDS: busPIRone HCL 10 MG TABLET PO (08:25)
[2020-05-20] MEDS: ASPIRIN 81 MG ENTERIC TABLET PO (08:25)
[2020-05-20 08:26] VITALS: PULSE 86
[2020-05-20] MEDS: carvediloL 6.25 MG TABLET PO (08:26)
[2020-05-20] MEDS: CLOPIDOGREL BISULFATE 75 MG TABLET PO (08:26)
[2020-05-20] MEDS: LORATADINE 10 MG TABLET PO (08:26)
[2020-05-20] MEDS: FLUTICASONE PROPIONATE 0.05% NA SPR 16 GM BTL (*BKC) 1 SPRAY NASAL (08:26)
[2020-05-20] MEDS: LOSARTAN POTASSIUM 50 MG TABLET PO (08:26)
[2020-05-20] MEDS: DULoxetine HCL 30 MG CAPSULE.DR PO (08:26)
[2020-05-20] MEDS: DULoxetine HCL 60 MG CAPSULE.DR PO (08:26)
[2020-05-20] MEDS: MONTELUKAST SODIUM 10 MG TABLET PO (08:27)
[2020-05-20] MEDS: TOPIRAMATE 25 MG TABLET 50 MG PO (08:27)
[2020-05-20] MEDS: ROSUVASTATIN 10 MG TABLET 40 MG PO (08:27)
--- NOTE | 2020-05-20 09:49 | PM.DS ---
DS: Admitting Diagnosis Admitting Diagnosis Admitting Diagnosis: Type 1 diabetes mellitus with ketoacidosis without coma DS: Discharge Diagnosis Discharge Diagnosis (1) DKA (diabetic ketoacidoses): Qualifiers: Diabetes mellitus complication detail: without coma Diabetes mellitus type: type 1 Qualified Code(s): E10.10 - Type 1 diabetes mellitus with ketoacidosis without coma Code(s): E11.10 - Type 2 diabetes mellitus with ketoacidosis without coma Status: Acute Assessment and Plan: Patient seen in the ER and found to be in DKA. She was treated with IV fluids and insulin drip and admitted to the ICU per protocol. Patient's anion gap has closed. She was able to come off of the insulin drip. She was started on Levemir but glucose increased that evening to the 400's. She has already changed out the insulin pump site and she had the pump here so the insulin pump resumed and she provided insulin basal and bolus. The pump appears to be functioning well. She carb counts as well (2) Diabetes: Code(s): E11.9 - Type 2 diabetes mellitus without complications Status: Acute Assessment and Plan: A1c 7.9. Patient has had diabetes since age 7. She has done quite well with this with infrequent DKA episodes. She has been on insulin pump for the past 20 years. As above. Episode on hypoglycemia but she states this is uncommon with her current settings so no change was made. (3) Hypertension: Qualifiers: Hypertension type: essential hypertension Qualified Code(s): I10 - Essential (primary) hypertension Code(s): I10 - Essential (primary) hypertension Status: Chronic Assessment and Plan: Blood pressure monitored closely. Blood pressure is somewhat labile. We continued with her Coreg and losartan. Continue to follow. (4) Anxiety: Code(s): F41.9 - Anxiety disorder, unspecified Status: Chronic Assessment and Plan: Mood stable. We continued Cymbalta. (5) Migraines: Code(s): G43.909 - Migraine, unspecified, not intractable, without status migrainosus Status: Chronic Assessment and Plan: Stable. We continued with Topamax. (6) Hyperlipemia: Qualifiers: Hyperlipidemia type: unspecified Qualified Code(s): E78.5 - Hyperlipidemia, unspecified Code(s): E78.5 - Hyperlipidemia, unspecified Status: Chronic Assessment and Plan: LFTs mildly elevated on admission but trended down on repeat. We continued with Myla. (7) Breast cancer: Code(s): C50.919 - Malignant neoplasm of unspecified site of unspecified female breast Status: Chronic Assessment and Plan: Patient recently diagnosed with breast cancer and currently undergoing radiation treatments. DS: Summary Hospital Course Reason for hospitalization: 50yo female with DM here for DKA. Please see H&P for details. Hospital Course: As above Time Spent with Patient Time attestation: Total time spent providing and/or coordinating discharge services:35 minutes Time spent: Greater than 30 minutes Specific discharge activities: Examining patient, patient Education and preparing the medical record. Exam Narrative: Exam Narrative: AF 132/63 86 20 97% ra Gen - NARD Lying semi recumbent in bed Chest - CTA bilaterally, nml RR CV - RRR S1/S2 Abd - soft, obese, NT Ext - no pedal edema Psych - nml mood and affect Skin - warm and dry DS: Data Data Completed and Pending Labs on day of discharge: Labs from last 24 hours 05/20/20 05/20/20 05/20/20 07:40 05:05 05:05 WBC 4.9 RBC 4.20 Hgb 12.8 Hct 38.0 MCV 90.5 MCH 30.5 MCHC 33.7 RDW 13.0 Plt Count 246 MPV 10.1 Immature Gran % (Auto) 0.4 Neut % (Auto) 66.3 Lymph % (Auto) 18.9 [place] % (Auto) 11.4 H Eos % (Auto) 2.2 Baso % (Auto) 0.8 Lymph # (Auto) 0.93 [place] # (Auto)
== END 2020-05-20 10:43 | disposition home or self-care (01) | DRG 639 ==
LOC: ANHED 16:08 → ANHICU 16:51 → ANH2MED 05-19 21:40
PROVIDERS: Internal Medicine; Nurse Practitioner; Physician Assistant; Admitting Provider Internal Medicine; Emergency Provider Emergency Medicine; PCP Family Medicine Adolescent Medicine; Visit Provider Internal Medicine
DX: E10.10 Type 1 diabetes mellitus with ketoacidosis without coma (principal); Z79.4 Long term (current) use of insulin; I10 Essential (primary) hypertension; F41.9 Anxiety disorder, unspecified; E78.5 Hyperlipidemia, unspecified; G43.909 Migraine, unspecified, not intractable, without status migrainosus; C50.911 Malignant neoplasm of unspecified site of right female breast; I25.10 Atherosclerotic heart disease of native coronary artery without angina pectoris
CPT/HCPCS: 36415; 36600; 80048; 80053; 80076; 81001; 81025; 82010; 82805; 82948; 83036; 83735; 84100; 84439; 84443; 84480; 85025; 87086; 87088; 93005; 96361; 96374; 99285; A9270; J0360; J1815; J3480; J7030

== ENCOUNTER 2020-06-03 08:15 | Outpatient (CLI) | payer BC, SELFPAY ==
[2020-06-03 08:30] LABS: Basophils Percent Auto 0.5 % (0.2-1.2); Eosinophils Absolute Auto 0.2 K/mm3 (0-0.3); Eosinophils Percent Auto 2.1 % (0-4.4); Hemoglobin 13.3 g/dL (12.0-15.0); Immature Granulocyte Absolute 0.03 K/mm3 (0.00-0.031); Immature Granulocyte Percent A 0.4 % (0-0.5); Lymphocytes Absolute Auto 0.98 K/mm3 (0.9-3.2); Lymphocytes Percent Auto 11.8 % (18.3-44.2); Mean Corpuscular HGB Conc 33.3 g/dl (32-36); Mean Corpuscular Hemoglobin 29.8 pg (26-34); Mean Corpuscular Volume 89.7 fl (80-100); Mean Platelet Volume 10.6 fl (7.4-10.4); Monocytes Absolute Auto 0.6 K/mm3 (0.1-0.6); Monocytes Percent Auto 6.8 % (2.6-8.5); Neutrophils Absolute Auto 6.5 K/mm3 (1.3-6.7); Neutrophils Percent Auto 78.4 % (45.5-73.1); Platelet Count Result 274 k/mm3 (150-375); Red Blood Count 4.46 M/mm3 (4.2-5.4); Red Cell Distribution Width 12.2 % (11.5-14.5); White Blood Count 8.3 K/mm3 (4.5-10.0)
[2020-06-03 09:16] LABS: Alanine Aminotransferase 32 U/L (4-35); Albumin Level 3.8 g/dL (3.5-5.1); Alkaline Phosphatase 146 U/L (38-126); Anion Gap 13.6 mmol/L (7-16); Aspartate Amino Transferase 31 U/L (14-36); Bilirubin,Total 0.4 mg/dL (0.2-1.3); Blood Urea Nitrogen 11 mg/dL (7-17); Calcium 9.1 mg/dL (8.4-10.2); Carbon Dioxide 27 mmol/L (22-30); Chloride 96 mmol/L (98-107); Estimated Glomerular Filt Rate > 60; Glucose 325 mg/dL (65-105); Potassium 4.6 mmol/L (3.4-5.0); Sodium 132 mmol/L (137-145)
== END 2020-06-03 08:16 | disposition home or self-care (01) ==
LOC: ANHLAB 08:17
PROVIDERS: PCP Family Medicine Adolescent Medicine; Visit Provider Internal Medicine Hematology & Oncology
DX: C50.411 Malignant neoplasm of upper-outer quadrant of right female breast (principal); Z17.0 Estrogen receptor positive status [ER+]
CPT/HCPCS: 36415; 80053; 85025

== ENCOUNTER 2020-09-02 08:57 | Outpatient (CLI) | payer BC, SELFPAY ==
[2020-09-02 09:13] LABS: Basophils Absolute Auto 0.1 K/mm3 (0.0-0.1); Basophils Percent Auto 0.6 % (0.2-1.2); Eosinophils Absolute Auto 0.1 K/mm3 (0-0.3); Eosinophils Percent Auto 1.5 % (0-4.4); Hematocrit 39.4 % (37.0-47.0); Hemoglobin 13.2 g/dL (12.0-15.0); Immature Granulocyte Absolute 0.03 K/mm3 (0.00-0.031); Immature Granulocyte Percent A 0.3 % (0-0.5); Lymphocytes Absolute Auto 1.32 K/mm3 (0.9-3.2); Lymphocytes Percent Auto 14.5 % (18.3-44.2); Mean Corpuscular HGB Conc 33.5 g/dl (32-36); Mean Corpuscular Hemoglobin 30.7 pg (26-34); Mean Corpuscular Volume 91.6 fl (80-100); Monocytes Absolute Auto 0.6 K/mm3 (0.1-0.6); Neutrophils Absolute Auto 6.9 K/mm3 (1.3-6.7); Neutrophils Percent Auto 76.1 % (45.5-73.1); Platelet Count Result 296 k/mm3 (150-375); Red Cell Distribution Width 12.6 % (11.5-14.5); White Blood Count 9.1 K/mm3 (4.5-10.0)
[2020-09-02 09:18] LABS: Blood Urea Nitrogen 8 mg/dL (8-26); Carbon Dioxide 24 mmol/L (22-30); Chloride 102 mmol/L (98-109); Estimated Glomerular Filt Rate > 60; Glucose 215 mg/dL (70-105); Potassium 4.1 mmol/L (3.5-4.9); Sodium 138 mmol/L (138-146)
[2020-09-02 11:31] LABS: Alanine Aminotransferase 16 U/L (4-35); Albumin Level 3.8 g/dL (3.5-5.1); Alkaline Phosphatase 70 U/L (38-126); Anion Gap 10 mmol/L (8-16); Aspartate Amino Transferase 23 U/L (14-36); Bilirubin,Total 0.4 mg/dL (0.2-1.3); Blood Urea Nitrogen 8 mg/dL (7-17); Calcium 8.8 mg/dL (8.4-10.2); Carbon Dioxide 25 mmol/L (22-30); Chloride 102 mmol/L (98-107); Estimated Glomerular Filt Rate > 60; Glucose 218 mg/dL (65-105); Potassium 4.4 mmol/L (3.4-5.0); Sodium 137 mmol/L (137-145)
== END 2020-09-02 08:58 | disposition home or self-care (01) ==
PROVIDERS: PCP Family Medicine Adolescent Medicine; Visit Provider Internal Medicine Hematology & Oncology
DX: C50.411 Malignant neoplasm of upper-outer quadrant of right female breast (principal); Z17.0 Estrogen receptor positive status [ER+]
CPT/HCPCS: 36415; 80048; 80053; 85025

== ENCOUNTER → 2020-12-03 08:12 | Outpatient (CLI) | payer BC, SELFPAY ==
--- NOTE | ~2020-12-03 | MM_ITS ---
EXAMINATION: MM diagnostic al[facility] BI w stephenie HISTORY: History of right breast cancer in 2019 TECHNIQUE: Craniocaudal, mediolateral, and mediolateral oblique 3-D tomosynthesis images of the breas ts were performed and synthetic 2-D images were generated. CAD analysis was submitted and interpreted . COMPARISON: 01/15/2020, 12/29/2019,10/05/2016, 09/28/2016 BREAST PARENCHYMAL COMPOSITION: The breasts are heterogeneously dense, which may obscure small masses . FINDINGS: There are lumpectomy changes in the upper outer quadrant of the right breast. Right breast skin thickening is consistent with radiation treatment. A right axillary surgical clip is consistent with axillary lymph node dissection. No new suspicious mass, calcification, or architectural distorti on are identified. IMPRESSION: 1. Lumpectomy and radiation changes of the right breast without mammographic evidence of malignancy. 2. Recommend routine screening mammography and clinical follow-up. BI-RADS Category 2: Benign finding(s). Reviewed, dictated and finalized at location A. [facility] IMPRESSION: 1. Lumpectomy and radiation changes of the right breast without mammographic ev idence of malignancy. 2. Recommend routine screening mammography and clinical follow-up. BI-RADS Category 2: Benign finding(s).
== END ==
PROVIDERS: PCP Family Medicine Adolescent Medicine; Visit Provider Internal Medicine Hematology & Oncology
DX: Z12.31 Encounter for screening mammogram for malignant neoplasm of breast (principal); Z85.3 Personal history of malignant neoplasm of breast
CPT/HCPCS: 77062; 77066; G0279

== ENCOUNTER 2020-12-03 09:36 | Outpatient (CLI) | payer BC, SELFPAY ==
[2020-12-03 09:53] LABS: Basophils Absolute Auto 0.1 K/mm3 (0.0-0.1); Basophils Percent Auto 0.6 % (0.2-1.2); Eosinophils Absolute Auto 0.1 K/mm3 (0-0.3); Eosinophils Percent Auto 1.4 % (0-4.4); Hematocrit 41.4 % (37.0-47.0); Hemoglobin 14.2 g/dL (12.0-15.0); Immature Granulocyte Absolute 0.02 K/mm3 (0.00-0.031); Immature Granulocyte Percent A 0.2 % (0-0.5); Lymphocytes Absolute Auto 1.32 K/mm3 (0.9-3.2); Lymphocytes Percent Auto 16.4 % (18.3-44.2); Mean Corpuscular HGB Conc 34.3 g/dl (32-36); Mean Corpuscular Hemoglobin 30.8 pg (26-34); Mean Corpuscular Volume 89.8 fl (80-100); Mean Platelet Volume 10.4 fl (7.4-10.4); Monocytes Absolute Auto 0.6 K/mm3 (0.1-0.6); Monocytes Percent Auto 7.6 % (2.6-8.5); Neutrophils Percent Auto 73.8 % (45.5-73.1); Platelet Count Result 291 k/mm3 (150-375); Red Blood Count 4.61 M/mm3 (4.2-5.4); Red Cell Distribution Width 12.5 % (11.5-14.5); White Blood Count 8.1 K/mm3 (4.5-10.0)
[2020-12-03 16:49] LABS: Alanine Aminotransferase 20 U/L (4-35); Alkaline Phosphatase 78 U/L (38-126); Anion Gap 10 mmol/L (8-16); Aspartate Amino Transferase 33 U/L (14-36); Bilirubin,Total 0.4 mg/dL (0.2-1.3); Blood Urea Nitrogen 9 mg/dL (7-17); Carbon Dioxide 26 mmol/L (22-30); Chloride 103 mmol/L (98-107); Estimated Glomerular Filt Rate > 60; Glucose 218 mg/dL (65-105); Potassium 4.3 mmol/L (3.4-5.0); Sodium 139 mmol/L (137-145)
[2020-12-07 06:35] LABS: CA 15-3 9 U/mL (<32)
== END 2020-12-03 09:37 | disposition home or self-care (01) ==
LOC: ANHLAB 09:38
PROVIDERS: PCP Family Medicine Adolescent Medicine; Visit Provider Internal Medicine Hematology & Oncology
DX: C50.411 Malignant neoplasm of upper-outer quadrant of right female breast (principal); Z17.0 Estrogen receptor positive status [ER+]
CPT/HCPCS: 36415; 80053; 85025; 86300